=== PATIENT | male | born 1990 | race Caucasian/White ===

== ENCOUNTER 2021-02-28 01:42 | Emergency (ER) | payer OTHER, SELFPAY ==
[2021-02-28 02:13] VITALS: BP 116/74; PULSE 67; RESP 18; TEMP 36.2; O2SAT 99; BMI 21.9
[2021-02-28 04:01] VITALS: BP 112/76; PULSE 63; RESP 16; TEMP 36.7; O2SAT 100
[2021-02-28 04:39] LABS: Appearance Urine CLOUDY; Color Urine YELLOW; Glucose Urine UA NEG (NEG); Nitrite Urine POS (NEG); UACC Culture Trigger YES; Urine Blood 3+ (NEG); Urine Ketones NEG (NEG); Urine Protein 1+ MG/DL (NEG-TRACE)
[2021-02-28 04:40] LABS: Leukocyte Esterase Urine 3+ (NEG)
--- NOTE | 2021-02-28 04:40 | ED.MALEGU ---
HPI - Male Genitourinary General Chief complaint: Urogenital-Male Stated complaint: difficulty urinating Time Seen by Provider: 02/28/21 04:40 Source: patient Mode of arrival: ambulatory History of Present Illness HPI Narrative: 30-year-old male with history of HIV who presents with difficulty in urination and noted discharge from his penis for the past couple of days without associated fevers, chills, scrotal pain, or abdominal pain. He states his last sexual intercourse was approximately 2 weeks prior. Related Data Previous Rx's Medication Instructions Recorded doxycycline hyclate 100 mg PO BID 7 Days #14 cap 02/28/21 nitrofurantoin macrocrystal 100 mg PO BID 7 Days #14 cap 02/28/21 Allergies Allergy/AdvReac Type Severity Reaction Status Date / Time No Known Allergies Allergy Unverified 06/26/20 19:00 [No Known Allergies*] Review of Systems Review of Systems: Pertinent positives and negatives as stated in HPI 10 point review of systems is otherwise negative. PMFSH Past Medical History Source: nursing notes reviewed Social History Social History Advance Directives: No Advance Directives Information Provided: No Physical Exam Vital Signs: Vital Signs: Last Vital Signs Temp 98.0 F 02/28/21 04:01 Pulse 63 02/28/21 04:01 Resp 16 02/28/21 04:01 BP 112/76 02/28/21 04:01 Pulse Ox 100 02/28/21 04:01 Body Mass Index 21.9 VITAL SIGNS: Reviewed. GENERAL: Well developed, well nourished, in no acute distress. HEAD: Normocephalic/atraumatic EYES: PERRLA, EOMI NOSE: Nares patent bilateral OROPHARYNX: no oral lesions noted, posterior pharynx clear NECK: Supple, no adenopathy LUNGS: Normal breath sounds. No adventitious sounds or accessory muscle use. SpO2<100> CARDIOVASCULAR: Regular rate and rhythm without noted murmurs ABDOMEN: Soft, non-tender, non-distended with bowel sounds. . Course Course Course Narrative: This is a 30-year-old male with history and clinical presentation most consistent with STI and patient will be empirically treated here in the emergency room and encouraged the patient to follow up with the results with his physician. In addition on review of remaining investigations he is noted to have a UTI and given his medication regimen will send him out with a course of Macrobid for UTI and remaining doxycycline for the presumptive STI. Patient was not discharged to home in stable condition. MDM - Male Genitourinary Lab Data Labs: Lab Results 02/28/21 Range/Units 04:12 Urine Color YELLOW Urine Appearance CLOUDY Urine pH 6.0 (5.0-8.0) Ur Specific [place] 1.020 (1.005-1.025) Urine Protein 1+ H (NEG-TRACE) MG/DL Urine Glucose (UA) NEG (NEG) MG/DL Urine Ketones NEG (NEG) MG/DL Urine Blood 3+ H (NEG) Urine Nitrite POS H (NEG) Ur Leukocyte Esterase 3+ H (NEG) Urine RBC 5-9 H (0) /HPF Urine WBC TNTC H (0-4) /HPF Urine WBC Clumps NOTED Ur Squamous Epith Cells NONE /LPF Urine Bacteria 1+ /LPF Urine Mucus 2+ /LPF Discharge Plan Discharge Clinical Impression: Urinary tract infection, STI (sexually transmitted infection) Patient Disposition: Home, Self-Care Instructions: Sexually Transmitted Diseases (ED), Urinary Tract Infection in Men (ED) Additional Instructions: 1. Please follow-up with your primary care provider for re-evaluation in 2-3 days. 2. Please complete entire course of antibiotics. Return to the ER for any acute worsening of her symptoms. Prescriptions: New nitrofurantoin macrocrystal 100 mg capsule 100 mg PO BID 7 Days Qty: 14 RF: 0 doxycycline hyclate 100 mg capsule 100 mg PO BID 7 Days Qty: 14 RF: 0 Referrals: Physician,None [Primary Care Provider] - 2 days
[2021-02-28 04:47] LABS: Bacteria Urine 1+ /LPF; Mucus Urine 2+ /LPF; WBC Clumps Urine NOTED; WBC Urine TNTC /HPF (0-4)
[2021-02-28] MEDS: cefTRIAXone sodium 500 MG, Lidocaine HCl 1 % MPF 1 ML IM (05:06)
[2021-02-28] MEDS: Nitrofurantoin Monohyd/M-Cryst 100 MG CAPSULE PO (06:06)
[2021-02-28 10:20] LABS: CT PCR NOT DETECTED (Not Detect.); NG PCR NOT DETECTED (Not Detect.)
== END 2021-02-28 06:08 | disposition home or self-care (01) ==
PROVIDERS: Emergency Provider Student in an Organized Health Care Education/Training Program
DX: N39.0 Urinary tract infection, site not specified (principal); Z11.3 Encounter for screening for infections with a predominantly sexual mode of transmission
CPT/HCPCS: 81001; 81003; 87086; 87088; 87186; 87491; 87591; 96372; 99284; J0696

== ENCOUNTER 2023-05-04 12:26 | Outpatient (REF) | payer MEDICAID, SELFPAY ==
[2023-05-04 16:07] LABS: MANUAL DIFF FLAG NO
[2023-05-04 16:46] LABS: Basophils Absolute Auto 0.1 X10*3/uL (0.0-0.2); Basophils Percent Auto 0.6 % (0-2); Eosinophils Absolute Auto 0.1 X10*3/uL (0.0-0.4); Eosinophils Percent Auto 0.6 % (0-4); Hematocrit 41.9 % (42.0-52.0); Hemoglobin 13.3 g/dl (14.0-18.0); Imm Gran Abs Auto 0.02 X10*3/uL (0.00-0.03); Imm Gran Pct Auto 0.2 % (0.0-0.4); Lymphocytes Absolute Auto 2.3 X10*3/uL (1.2-4.9); Lymphocytes Percent Auto 27.1 % (20-40); Mean Corpuscular HGB Conc 31.7 g/dl (31.0-36.0); Mean Corpuscular Hemoglobin 28.8 pg (27.0-33.0); Mean Corpuscular Volume 90.7 fL (80.0-98.0); Mean Platelet Volume 9.6 fL (9.4-12.4); Monocytes Absolute Auto 0.4 X10*3/uL (0.1-1.2); Monocytes Percent Auto 4.9 % (2-11); Neutrophils Absolute Auto 5.7 x10*3/uL (2.0-8.3); Neutrophils Percent Auto 66.6 % (45-73); Platelet Count 285 X10*3/uL (160-400); Red Blood Count 4.62 X10*6/uL (4.60-5.80); Red Cell Distribution Width 13.4 % (11.0-16.0); White Blood Count 8.6 X10*3/uL (4.8-10.8)
[2023-05-04 17:03] LABS: Alanine Aminotransferase 15 U/L (0-40); Albumin Level 4.2 g/dL (3.5-5.0); Alkaline Phosphatase 80 U/L (39-117); Anion Gap 15 (12-20); Aspartate Amino Transferase 20 U/L (5-37); Bilirubin Total 0.5 mg/dL (0.0-1.0); Blood Urea Nitrogen 15 mg/dL (9-16); Calcium 9.3 mg/dL (8.4-10.2); Carbon Dioxide 24 mmol/L (22-29); Chloride 106 mmol/L (96-108); Estimated Glomerular Filt Rate > 60; Glucose Random 87 mg/dL (60-115); Potassium 4.1 mmol/L (3.3-5.1); Sodium 141 mmol/L (135-145); Total Protein 7.6 g/dL (6.5-8.0)
[2023-05-05 03:34] LABS: CT PCR NOT DETECTED (Not Detect.); NG PCR NOT DETECTED (Not Detect.)
[2023-05-05 07:47] LABS: Syphilis Screen Reactive (Nonreactive)
[2023-05-06 10:44] LABS: Absolute CD3 Count 1505 cells/uL (840-3060); Absolute CD4 Count 908 cells/uL (490-1740); Absolute CD8 Count 594 cells/uL (180-1170); Absolute Lymphocytes 2098 cells/uL (850-3900); CD4 CD8 Ratio 1.53 (0.86-5.00); Percent CD3 Cells 72 % (57-85); Percent CD4 Cells 43 % (30-61); Percent CD8 Cells 28 % (12-42)
[2023-05-06 16:33] LABS: HIV RNA PCR Qn Copies <20 DETECTED copies/mL (NOT DETECTED); HIV RNA PCR Qn Log Copies <1.30 DETECTED (NOT DETECTED)
[2023-05-09 12:08] LABS: C.Trachomatis RNA TMA, Rectal NOT DETECTED; N.Gonorrhoeae RNA TMA, Rectal NOT DETECTED
[2023-05-10 17:39] LABS: C. Trachomatis RNA TMA, Throat NOT DETECTED; N. gonorrhoeae RNA TMA, Throat NOT DETECTED
[2023-05-16 10:56] LABS: RPR Quantitative Reactive 1:4 (Nonreactive)
[2023-05-16 10:57] LABS: T.Pallidum Particle Agg Test Reactive (Nonreactive)
== END 2023-05-04 12:27 | disposition home or self-care (01) ==
LOC: HO.HHCL 12:26
PROVIDERS: Visit Provider Internal Medicine
DX: B20 Human immunodeficiency virus [HIV] disease (principal)
CPT/HCPCS: 0353U; 36415; 80053; 82550; 85025; 86359; 86360; 86592; 86780; 87491; 87536; 87591

== ENCOUNTER 2023-06-24 09:23 | Outpatient (REF) | payer MEDICAID, SELFPAY ==
[2023-06-24 11:31] LABS: MANUAL DIFF FLAG NO
[2023-06-24 11:36] LABS: Basophils Absolute Auto 0.1 X10*3/uL (0.0-0.2); Basophils Percent Auto 0.8 % (0-2); Eosinophils Absolute Auto 0.1 X10*3/uL (0.0-0.4); Eosinophils Percent Auto 1.2 % (0-4); Hematocrit 40.3 % (42.0-52.0); Hemoglobin 12.9 g/dl (14.0-18.0); Imm Gran Abs Auto 0.03 X10*3/uL (0.00-0.03); Imm Gran Pct Auto 0.3 % (0.0-0.4); Lymphocytes Percent Auto 26.5 % (20-40); Mean Corpuscular Hemoglobin 29.3 pg (27.0-33.0); Mean Corpuscular Volume 91.6 fL (80.0-98.0); Mean Platelet Volume 9.7 fL (9.4-12.4); Monocytes Absolute Auto 0.9 X10*3/uL (0.1-1.2); Monocytes Percent Auto 7.6 % (2-11); Neutrophils Absolute Auto 7.2 x10*3/uL (2.0-8.3); Neutrophils Percent Auto 63.6 % (45-73); Platelet Count 241 X10*3/uL (160-400); White Blood Count 11.3 X10*3/uL (4.8-10.8)
[2023-06-24 12:18] LABS: Alanine Aminotransferase 44 U/L (0-40); Alkaline Phosphatase 88 U/L (39-117); Anion Gap 8 (12-20); Aspartate Amino Transferase 30 U/L (5-37); Bilirubin Total 0.3 mg/dL (0.0-1.0); Blood Urea Nitrogen 20 mg/dL (9-16); Calcium 8.7 mg/dL (8.4-10.2); Carbon Dioxide 28 mmol/L (22-29); Chloride 106 mmol/L (96-108); Estimated Glomerular Filt Rate > 60; Glucose Random 83 mg/dL (60-115); Potassium 3.8 mmol/L (3.3-5.1); Sodium 138 mmol/L (135-145); Total Protein 6.7 g/dL (6.5-8.0)
[2023-06-24 13:23] LABS: Syphilis Screen Reactive (Nonreactive)
[2023-06-24 16:32] LABS: CT PCR NOT DETECTED (Not Detect.); NG PCR NOT DETECTED (Not Detect.)
[2023-06-27 08:09] LABS: Absolute CD3 Count 2049 cells/uL (840-3060); Absolute CD4 Count 1164 cells/uL (490-1740); Absolute CD8 Count 895 cells/uL (180-1170); Absolute Lymphocytes 3030 cells/uL (850-3900); Percent CD3 Cells 68 % (57-85); Percent CD4 Cells 38 % (30-61); Percent CD8 Cells 30 % (12-42)
[2023-06-29 19:48] LABS: HIV RNA PCR Qn Copies 25 copies/mL (NOT DETECTED)
[2023-07-03 14:41] LABS: RPR Quantitative Reactive 1:4 (Nonreactive); T.Pallidum Particle Agg Test Reactive (Nonreactive)
== END 2023-06-24 09:24 | disposition home or self-care (01) ==
LOC: HO.HHCL 09:23
PROVIDERS: Visit Provider Internal Medicine
DX: B20 Human immunodeficiency virus [HIV] disease (principal)
CPT/HCPCS: 0353U; 36415; 80053; 82550; 85025; 86359; 86360; 86592; 86780; 87536

== ENCOUNTER 2023-12-27 08:22 | Outpatient (REF) | payer MEDICAID, SELFPAY ==
[2023-12-27 11:23] LABS: MANUAL DIFF FLAG NO
[2023-12-27 11:36] LABS: Hematocrit 44.9 % (42.0-52.0); Mean Corpuscular HGB Conc 33.4 g/dl (31.0-36.0); Mean Corpuscular Hemoglobin 29.4 pg (27.0-33.0); Mean Platelet Volume 9.5 fL (9.4-12.4); Neutrophils Percent Auto 34.9 % (45-73); Platelet Count 326 X10*3/uL (160-400); Red Cell Distribution Width 13.1 % (11.0-16.0); White Blood Count 8.8 X10*3/uL (4.8-10.8)
[2023-12-27 11:37] LABS: Basophils Absolute Auto 0.1 X10*3/uL (0.0-0.2); Eosinophils Absolute Auto 0.2 X10*3/uL (0.0-0.4); Eosinophils Percent Auto 2.7 % (0-4); Imm Gran Abs Auto 0.01 X10*3/uL (0.00-0.03); Imm Gran Pct Auto 0.1 % (0.0-0.4); Lymphocytes Absolute Auto 4.7 X10*3/uL (1.2-4.9); Lymphocytes Percent Auto 53.4 % (20-40); Monocytes Absolute Auto 0.7 X10*3/uL (0.1-1.2); Monocytes Percent Auto 7.9 % (2-11); Neutrophils Absolute Auto 3.1 x10*3/uL (2.0-8.3)
[2023-12-27 12:22] LABS: Alanine Aminotransferase 17 U/L (0-40); Albumin Level 4.4 g/dL (3.5-5.0); Alkaline Phosphatase 91 U/L (39-117); Anion Gap 13 (12-20); Aspartate Amino Transferase 20 U/L (5-37); Bilirubin Total 1.3 mg/dL (0.0-1.0); Blood Urea Nitrogen 20 mg/dL (9-16); Calcium 9.6 mg/dL (8.4-10.2); Carbon Dioxide 26 mmol/L (22-29); Chloride 104 mmol/L (96-108); Cholesterol 230 mg/dL (<200); Estimated Glomerular Filt Rate > 60; Glucose Random 104 mg/dL (60-115); HDL Cholesterol 96 mg/dL (>40); LDL Cholesterol Calculated 123 mg/dL (<100); Potassium 4.3 mmol/L (3.3-5.1); Sodium 139 mmol/L (135-145); Total Protein 7.8 g/dL (6.5-8.0); Triglycerides 58 mg/dL (<150)
[2023-12-27 13:24] LABS: Reflex LDLD? No
[2023-12-28 12:54] LABS: Absolute CD3 Count 2983 cells/uL (840-3060); Absolute CD4 Count 1620 cells/uL (490-1740); Absolute CD8 Count 1377 cells/uL (180-1170); Absolute Lymphocytes 4658 cells/uL (850-3900); CD4 CD8 Ratio 1.18 (0.86-5.00); Percent CD3 Cells 64 % (57-85); Percent CD4 Cells 35 % (30-61); Percent CD8 Cells 30 % (12-42)
[2023-12-29 12:34] LABS: RPR Rapid Plasma Reagin REACTIVE (NON-REACTIVE)
[2023-12-29 14:53] LABS: HCV Log PCR <1.18 NOT DETECTED Log IU/mL (NOT DETECTED); HepC Viral Load <15 NOT DETECTED IU/mL (NOT DETECTED)
[2023-12-30 07:19] LABS: TS Negative Control Passed; TS Panel A 0; TS Panel B 0; TS Positive Control Passed; TSpotTB Negative (Negative)
[2024-01-04 07:13] LABS: HIV RNA PCR Qn Copies 29 copies/mL (NOT DETECTED); HIV RNA PCR Qn Log Copies 1.46 (NOT DETECTED)
== END 2023-12-27 08:23 | disposition home or self-care (01) ==
LOC: HO.HHCL 08:22
PROVIDERS: Visit Provider Internal Medicine
DX: B20 Human immunodeficiency virus [HIV] disease (principal)
CPT/HCPCS: 36415; 80053; 80061; 82550; 85025; 86359; 86360; 86481; 86592; 86593; 87522; 87536

== ENCOUNTER 2024-03-14 09:35 | Outpatient (REF) | payer MEDICAID, SELFPAY ==
[2024-03-14 11:48] LABS: MANUAL DIFF FLAG NO
[2024-03-14 11:55] LABS: Basophils Percent Auto 0.6 % (0-2); Eosinophils Absolute Auto 0.1 X10*3/uL (0.0-0.4); Hematocrit 38.7 % (42.0-52.0); Hemoglobin 13.1 g/dl (14.0-18.0); Imm Gran Abs Auto 0.03 X10*3/uL (0.00-0.03); Imm Gran Pct Auto 0.4 % (0.0-0.4); Lymphocytes Absolute Auto 2.3 X10*3/uL (1.2-4.9); Lymphocytes Percent Auto 33.5 % (20-40); Mean Corpuscular HGB Conc 33.9 g/dl (31.0-36.0); Mean Corpuscular Hemoglobin 29.7 pg (27.0-33.0); Mean Corpuscular Volume 87.8 fL (80.0-98.0); Mean Platelet Volume 9.6 fL (9.4-12.4); Monocytes Absolute Auto 0.4 X10*3/uL (0.1-1.2); Monocytes Percent Auto 6.1 % (2-11); Neutrophils Percent Auto 58.4 % (45-73); Platelet Count 231 X10*3/uL (160-400); Red Blood Count 4.41 X10*6/uL (4.60-5.80); Red Cell Distribution Width 12.8 % (11.0-16.0); White Blood Count 6.9 X10*3/uL (4.8-10.8)
[2024-03-14 12:08] LABS: Alanine Aminotransferase 18 U/L (0-40); Albumin Level 4.3 g/dL (3.5-5.0); Alkaline Phosphatase 78 U/L (39-117); Anion Gap 13 (12-20); Aspartate Amino Transferase 21 U/L (5-37); Bilirubin Total 0.8 mg/dL (0.0-1.0); Blood Urea Nitrogen 12 mg/dL (9-16); Carbon Dioxide 25 mmol/L (22-29); Chloride 106 mmol/L (96-108); Estimated Glomerular Filt Rate > 60; Glucose Random 95 mg/dL (60-115); Potassium 3.7 mmol/L (3.3-5.1); Sodium 140 mmol/L (135-145); Total Protein 7.1 g/dL (6.5-8.0)
[2024-03-15 11:48] LABS: Absolute CD3 Count 1576 cells/uL (840-3060); Absolute CD4 Count 865 cells/uL (490-1740); Absolute CD8 Count 718 cells/uL (180-1170); Absolute Lymphocytes 2382 cells/uL (850-3900); Percent CD3 Cells 66 % (57-85); Percent CD4 Cells 36 % (30-61); Percent CD8 Cells 30 % (12-42)
[2024-03-16 14:08] LABS: HIV RNA PCR Qn Copies NOT DETECTED copies/mL (NOT DETECTED); HIV RNA PCR Qn Log Copies NOT DETECTED (NOT DETECTED)
== END 2024-03-14 09:36 | disposition home or self-care (01) ==
LOC: HO.HHCL 09:35
PROVIDERS: Visit Provider Internal Medicine
DX: B20 Human immunodeficiency virus [HIV] disease (principal); Z11.3 Encounter for screening for infections with a predominantly sexual mode of transmission
CPT/HCPCS: 36415; 80053; 82550; 85025; 86359; 86360; 87536

== ENCOUNTER 2024-03-14 19:14 | Outpatient (REF) | payer MEDICAID, SELFPAY ==
[2024-03-15 02:55] LABS: CT PCR NOT DETECTED (Not Detect.); NG PCR NOT DETECTED (Not Detect.)
[2024-03-19 04:24] LABS: C.Trachomatis RNA TMA, Rectal NOT DETECTED; N.Gonorrhoeae RNA TMA, Rectal NOT DETECTED
[2024-03-19 04:33] LABS: C. Trachomatis RNA TMA, Throat NOT DETECTED; N. gonorrhoeae RNA TMA, Throat NOT DETECTED
== END 2024-03-14 19:15 | disposition home or self-care (01) ==
LOC: HO.HHCLNP 19:14
PROVIDERS: Visit Provider Family Medicine
DX: Z11.3 Encounter for screening for infections with a predominantly sexual mode of transmission (principal)
CPT/HCPCS: 0353U; 87491; 87591

== ENCOUNTER 2024-04-04 18:40 | Outpatient (REF) | payer MEDICAID, SELFPAY ==
[2024-04-05 06:07] LABS: CT PCR NOT DETECTED (Not Detect.); NG PCR NOT DETECTED (Not Detect.)
== END 2024-04-04 18:41 | disposition home or self-care (01) ==
LOC: HO.HHCLNP 18:40
PROVIDERS: Visit Provider Emergency Medicine
DX: N34.2 Other urethritis (principal)
CPT/HCPCS: 87086; 87088; 87186; 87491; 87591

== ENCOUNTER 2024-05-31 08:56 | Outpatient (REF) | payer MEDICAID, SELFPAY ==
[2024-05-31 13:00] LABS: HBS Num1 > 1000.00 mIU/mL (0-7.99); HBc Num1 0.28 S/CO (0.00-0.79); HBsAGNum1 0.31 S/CO (0.00-0.99); Hepatitis B Core Antibody Nonreactive (Nonreactive); Hepatitis B Surface Antigen Negative (Negative); ~HepC Num1 0.11 S/CO (0.00-0.79); ~Hepatitis B Surface Antibody REACTIVE (Nonreactive); ~Hepatitis C Antibody Nonreactive (Nonreactive)
[2024-06-01 12:28] LABS: RPR Rapid Plasma Reagin REACTIVE (NON-REACTIVE)
[2024-06-01 21:29] LABS: Trichomonas vag. RNA Ur Male NOT DETECTED (NOT DETECTED)
== END 2024-05-31 08:57 | disposition home or self-care (01) ==
LOC: HO.HHCL 08:56
PROVIDERS: Visit Provider Emergency Medicine
DX: N34.2 Other urethritis (principal)
CPT/HCPCS: 36415; 86592; 86593; 86704; 86706; 86803; 87340; 87661

== ENCOUNTER 2024-08-28 13:02 | Outpatient (REF) | payer MEDICAID, SELFPAY ==
[2024-08-28 17:46] LABS: Vitamin B12 433 pg/mL (200-900)
== END 2024-08-28 13:03 | disposition home or self-care (01) ==
LOC: HO.HHCL 13:02
PROVIDERS: Visit Provider Internal Medicine
DX: E46 Unspecified protein-calorie malnutrition (principal)
CPT/HCPCS: 36415; 82607; 82746

== ENCOUNTER 2024-09-11 14:13 | Outpatient (REF) | payer MEDICAID, SELFPAY ==
[2024-09-11 16:27] LABS: MANUAL DIFF FLAG NO
[2024-09-11 16:32] LABS: Basophils Absolute Auto 0.1 X10*3/uL (0.0-0.2); Basophils Percent Auto 0.9 % (0-2); Eosinophils Absolute Auto 0.2 X10*3/uL (0.0-0.4); Eosinophils Percent Auto 2.9 % (0-4); Hematocrit 38.2 % (42.0-52.0); Hemoglobin 12.8 g/dl (14.0-18.0); Imm Gran Abs Auto 0.01 X10*3/uL (0.00-0.03); Imm Gran Pct Auto 0.2 % (0.0-0.4); Lymphocytes Absolute Auto 2.8 X10*3/uL (1.2-4.9); Lymphocytes Percent Auto 50.3 % (20-40); Mean Corpuscular HGB Conc 33.5 g/dl (31.0-36.0); Mean Corpuscular Hemoglobin 29.6 pg (27.0-33.0); Mean Corpuscular Volume 88.2 fL (80.0-98.0); Mean Platelet Volume 9.3 fL (9.4-12.4); Monocytes Absolute Auto 0.4 X10*3/uL (0.1-1.2); Monocytes Percent Auto 6.4 % (2-11); Neutrophils Absolute Auto 2.2 x10*3/uL (2.0-8.3); Neutrophils Percent Auto 39.3 % (45-73); Platelet Count 226 X10*3/uL (160-400); Red Blood Count 4.33 X10*6/uL (4.60-5.80); Red Cell Distribution Width 12.6 % (11.0-16.0); White Blood Count 5.5 X10*3/uL (4.8-10.8)
[2024-09-11 21:23] LABS: Alanine Aminotransferase 17 U/L (0-40); Albumin Level 4.2 g/dL (3.5-5.0); Alkaline Phosphatase 91 U/L (39-117); Anion Gap 13 (12-20); Aspartate Amino Transferase 28 U/L (5-37); Bilirubin Total 0.4 mg/dL (0.0-1.0); Blood Urea Nitrogen 18 mg/dL (9-16); Calcium 8.5 mg/dL (8.4-10.2); Carbon Dioxide 23 mmol/L (22-29); Chloride 109 mmol/L (96-108); Estimated Glomerular Filt Rate > 60; Glucose Random 96 mg/dL (60-115); Potassium 3.6 mmol/L (3.3-5.1); Sodium 141 mmol/L (135-145); Total Protein 7.1 g/dL (6.5-8.0)
[2024-09-13 17:13] LABS: RPR Rapid Plasma Reagin REACTIVE (NON-REACTIVE)
[2024-09-13 22:59] LABS: HIV RNA PCR Qn Copies 49 copies/mL (NOT DETECTED); HIV RNA PCR Qn Log Copies 1.69 (NOT DETECTED)
[2024-09-14 22:33] LABS: Absolute CD3 Count 1792 cells/uL (840-3060); Absolute CD4 Count 1071 cells/uL (490-1740); Absolute CD8 Count 740 cells/uL (180-1170); Absolute Lymphocytes 2600 cells/uL (850-3900); CD4 CD8 Ratio 1.45 (0.86-5.00); Percent CD3 Cells 69 % (57-85); Percent CD4 Cells 41 % (30-61); Percent CD8 Cells 28 % (12-42)
== END 2024-09-11 14:14 | disposition home or self-care (01) ==
LOC: HO.HHCL 14:13
PROVIDERS: Visit Provider Internal Medicine
DX: Z21 Asymptomatic human immunodeficiency virus [HIV] infection status (principal)
CPT/HCPCS: 36415; 80053; 82550; 85025; 86359; 86360; 86592; 86593; 87536

== ENCOUNTER 2025-05-16 11:27 | Outpatient (REF) | payer MEDICAID, SELFPAY ==
--- OUTSIDE RECORDS SUMMARY | 2025-05-16 12:09 | XMS_ITS | Clinical Summary ---
Author Organization [facility] Address [address] [place] [address] Phone Care Team Providers Care Ruby Developer Name Role Phone Physician, No Pcp Primary Care Provider Unavaila ble Allergies No known active allergies Medications methocarbamoL (ROBAXIN) 750 mg tablet Take 1 tablet (750 mg total) by mouth 4 (four) times a day for 10 days. 40 each 03/13/2025 Active clotrimazole (LOTRIMIN) 1 % cream Apply to affected area 2 times daily 45 g 04/05/2025 04/05/20 26 Active Active Problems Problem Noted Date Diagnosed Date Primary syphilis 08/21/2024 Encounters Date Type Department Care Team Description 04/05/2025 7:28 AM EDT - 04/05/2025 8:33 AM EDT [facility] Emergency [address] [place] [phone] Tinea pedis, unspecified laterality (Primary Dx) Discharge Disposition: Home or Self Care 03/27/2025 11:35 AM EDT - 03/27/2025 12:58 PM EDT Emergency [facility] Emergency [address] [place] [address] [phone] Jake Thakkar MD Insect bite, unspecified site, initial encounter (Primary Dx) Discharge Disposition: Home or Self Care 03/13/2025 12:28 AM EDT - 03/13/2025 12:45 AM EDT [facility] Emergency [address] [place] [address] [phone] Thoracic myofascial strain, initial encounter (Primary Dx) Discharge Disposition: Home or Self Care 03/07/2025 12:03 AM EDT - 03/07/2025 2:06 AM EDT Emergency [facility] Emergency [address] [place] [address] Ureteritis (Primary Dx) Discharge Disposition: Home or Self Care from Last 3 Months Surgical History Surgery Date Site/Laterality Comments APPENDECTOMY N/A PROCEDURE: MS APPENDECTOMY Medical History Medical History Date Comments Anxiety disorder DX:Anxiety diso rder Depression DX:Depression PTSD (post-traumatic stress disorder) DX:PTSD (post-traumatic stress disorder) Human immunodeficiency virus (HIV) disease ([facility] V24, [facility] V28) DX:Human immunodefi ciency virus (HIV) disease (HCC) HIV (human immunodeficiency virus infection) ([facility] V24, [facility] V28) Social History Tobacco Use Types Packs/Day Years Used Date Smoking Tobacco: Never Smokeless Tobacco: Never Alcohol Use Standard Drinks/Week Comments Never 0 (1 standard drink = 0.6 oz pur e alcohol) Housing Instability Answer Date Recorde d Are you worried that in the next 2 months you may not have stable housing? Yes 11/01/2024 Food Access & Nutrition Answer Date Rec orded Do you have access to a vari ety of food including fruits and vegetables? No 11/01/2024 Access to Healthcare Answer Date Record ed Within the last 3 months, ho w many times did you visit the emergency department for your medical care? 2 11/01/2024 Health Literacy Answer Date Recorded How often do you need to hav e someone help you when you read instructions, pamphlets, or other written material from your doctor or pharmacy? Never 11/01/2024 Caregiver: How often do you need to have someone help you when you read instructions, pamphlets, or other written material from your doctor or pharmacy? Not on file 11/01/2024 Financial Risk Answer Date Recorded How hard is it for you to pa y for the very basics like food, housing, medical care, and air conditioning / heating? Not very hard 11/01/2024 Transportation Answer Date Recorded Has the lack of transportati on kept you from meetings, work, or from getting things needed for daily living? No Has the lack of transportati on kept you from medical appointments or from getting medications? No 11/01/2024 Social Isolation Answer Date Recorded How often do you feel lonely or isolated from th ose around you? Never 11/01/2024 Food Risk Answer Date Recorded Within the past 12 months we worried whether our food would run out before we got money to buy more. Never true 11/01/2024 Within the past 12 months th e food we bought just didn't last and we didn't have money to get more. Never true 11/01/2024 Dependent Care Answer Date Recorded Do you need help finding or paying for care for your loved ones. For example, early childhood worker or elderly care for an older adult? No 11/01/2024 Education Answer Date Recorded Do you think completing more education or training, like finishing a GED, going to college, or learning a trade, would be helpful for you? N/A 11/01/2024 Employment and Income Answer Date Recor ded During the last four weeks, have you been actively looking for work? No 11/01/2024 Living Situation Answer Date Recorded What is your living situation? 0 11/01/2024 Sex and Gender Information Value Date Recorded Sex Assigned at Male 09/15/2024 6:50 PM EST Legal Sex Male 10:04 AM EST Gender Identity Male 09/15/2024 6:50 PM EST Sexual Orientation Lesbian or Mayer 09/15/2024 6: 50 PM EST Obstetrics History Last Filed Vital Signs Vital Sign Reading Time Taken Comments Blood Pressure 94/61 04/05/2025 6:26 AM EDT Pulse 60 04/05/2025 6:26 AM EDT Temperature 36.4 C (97.5 F) 04/05/2025 6:26 AM EDT Respiratory Rate 18 04/05/2025 6:26 AM EDT Oxygen Saturation 100% 04/05/2025 6:26 AM EDT Inhaled Oxygen Concentration - - Weight 56.7 kg (125 lb) 04/04/2025 7:00 PM EDT Height 162.6 cm (5' 4 ) 04/04/2025 7:00 PM EDT Body Mass Index 21.46 04/04/2025 7:00 PM EDT Plan of Treatment Health Maintenance Due Date Last Done Comments Hepatitis A Vaccines (1 of 2 - Risk 2-dose series) 2010 Hepatitis B Vaccines (1 of 3 - 19+ 3-dose series) 2010 HIV Screening 09/07/2022 Hepatitis C Screening 09/07/2022 COVID-19 Vaccine (4 - 2023-2 5 season) 2024 10/27/2021, 07/03/2021, 06/05/2021 Depression Screening 10/10/2024 Influenza Vaccine (#1) 2025 Social Influencers of Health Screening 11/01/2025 11/01/2024 DTaP,Tdap,and Td Vaccines (3 - Td or Tdap) 05/02/2033 05/02/2023, 04/18/2021 Meningococcal ACWY Vaccine Aged Out 09/27/2024 N o longer eligible based on patient's age to complete this topic HIB Vaccines Aged Out No longer eligi ble based on patient's age to complete this topic HPV Vaccines Aged Out No longer eligi ble based on patient's age to complete this topic IPV Vaccines Aged Out No longer eligi ble based on patient's age to complete this topic MMR Vaccines Aged Out No longer eligi ble based on patient's age to complete this topic Meningococcal B Vaccine Aged Out No l onger eligible based on patient's age to complete this topic Pneumococcal Vaccine: Pediatrics (0 to 5 Years) and At-Risk Patients (6 to 49 Years) Aged Out No longer eligible b ased on patient's age to complete this topic RSV Immunization Patients Under 20 months Aged Out No longer eligible b ased on patient's age to complete this topic Varicella Vaccines Aged Out No longer eligible based on patient's age to complete this topic Procedures Procedure Name Priority Date/Time Associated Diagnosis Comments CHLAMYDIA TRACHOMATIS AND NEISSERIA GONORRHOEAE PCR STAT 03/07/2025 1:14 AM EDT SULLIVAN URINE CULTURE TUBE STAT 03/06/2025 11:51 PM EDT URINALYSIS WITH REFLEX MICROSCOPIC AND CULTURE STAT 03/06/2025 11:51 PM EDT URINALYSIS WITH REFLEX MICROSCOPIC AND CULTURE STAT 03/06/2025 11:51 PM EDT from Last 3 Months Results * Chlamydia trachomatis and Neisseria gonorrhoeae molecular study (03/07/2025 1:14 AM EDT) [facility] Neisseria gonorrhoeae PCR Negative Negative LAB MOLECULAR DIAGNOSTICS METHOD 03/07/2025 11:54 AM EDT [facility] Chlamydia trachomatis PCR Negative Negative LAB MOLECULAR DIAGNOSTICS METHOD 03/07/2025 11:54 AM [facility] Urine Urine specimen from urethra / Unknown Non-blood Collection / Unknown 03/07/2025 1:14 AM EDT 03/07/2025 2:06 AM EDT Adelso MARIN LAB MICROBIOLOGY - GENERAL OR DERABLES Final Result [facility] [address] [place] [address], [place] [phone] * (ABNORMAL) Urinalysis with reflex microscopic and culture (03/06/2025 11:51 PM EDT) [facility] Specific [place] Urine 1.026 1.003 - 1.030 LAB URINALYSIS - AUTOMATED METHOD 03/07/2025 12:40 AM [facility] pH, Urine 5.5 5.0 - 8.0 pH LAB URINALYSIS - AUTOMATED METHOD 03/07/2025 12:40 AM [facility] Leukocytes, Urine Negative Negative LAB URINALYSIS - AUTOMATED METHOD 03/07/2025 12:40 AM [facility] Nitrite, Urine Negative Negative LAB URINALYSIS - AUTOMATED METHOD 03/07/2025 12:40 AM [facility] Protein, Urine Trace <=Trace mg/dL LAB URINALYSIS - AUTOMATED METHOD 03/07/2025 12:40 AM [facility] Glucose, Urine Negative Negative mg/dL LAB URINALYSIS - AUTOMATED METHOD 03/07/2025 12:40 AM [facility] Ketones, Urine Trace(A) Negative mg/dL LAB URINALYSIS - AUTOMATED METHOD 03/07/2025 12:40 AM EDT [facility] Urobilinogen, Urine 0.2 0.2 - 1.0 mg/dL LAB URINALYSIS - AUTOMATED METHOD 03/07/2025 12:40 AM EDT [facility] Bilirubin, Urine Negative Negative LAB URINALYSIS - AUTOMATED METHOD 03/07/2025 12:40 AM EDT [facility] Blood, Urine Negative Negative LAB URINALYSIS - AUTOMATED METHOD 03/07/2025 12:40 AM EDT [facility] Urine Urine specimen obtained by clean catch procedure / Unknown Non-blood Collection / Unknown 03/06/2025 11:51 PM EDT 03/07/2025 12:32 AM EDT Myles Berman MD LAB URINE ORDERABLES Final Resu lt Performing Organization Address [facility]/ZIP Co de Phone Number [facility] [address] [place] [address], [place] [phone] * Sullivan urine culture tube (03/06/2025 11:51 PM EDT) Extra Tube Hold for add-ons. 03/07/2025 2:01 AM EDT [facility] Comment:Auto resulted. Urine Urine specimen obtained by clean catch procedure / Unknown Non-blood Collection / Unknown 03/06/2025 11:51 PM EDT 03/07/2025 12:32 AM EDT Myles Berman MD LAB URINE ORDERABLES Final Resu lt Performing Organization Address [facility]/ZIP Co de Phone Number [facility] [address] [place] [address], [place] [phone] from Last 3 Months Insurance Sanujana DOHERTY, JOSE J [id number] [facility] [place] [id number] Care Teams Ruby Developer Relationship Specialty Start Date End Date Physician, No Pcp PCP - General 08/21/24
[2025-05-16 13:02] LABS: MANUAL DIFF FLAG NO
[2025-05-16 13:04] LABS: Hematocrit 36.8 % (42.0-52.0); Hemoglobin 12.7 g/dl (14.0-18.0); Imm Gran Abs Auto 0.01 X10*3/uL (0.00-0.03); Imm Gran Pct Auto 0.2 % (0.0-0.4); Lymphocytes Absolute Auto 1.9 X10*3/uL (1.2-4.9); Mean Corpuscular HGB Conc 34.5 g/dl (31.0-36.0); Mean Corpuscular Hemoglobin 29.8 pg (27.0-33.0); Mean Corpuscular Volume 86.4 fL (80.0-98.0); NRBC Abs Auto 0.000 X10*3/uL (0.0-0.012); NRBC Pct Auto 0.0 /100WBC (0.0-0.2); Platelet Count 220 X10*3/uL (160-400); Red Blood Count 4.26 X10*6/uL (4.60-5.80); White Blood Count 5.3 X10*3/uL (4.8-10.8)
[2025-05-16 13:17] LABS: Alanine Aminotransferase 22 U/L (0-40); Albumin Level 4.4 g/dL (3.5-5.0); Alkaline Phosphatase 75 U/L (39-117); Anion Gap 12 (12-20); Aspartate Amino Transferase 30 U/L (5-37); Blood Urea Nitrogen 15 mg/dL (9-16); Calcium 8.7 mg/dL (8.4-10.2); Carbon Dioxide 25 mmol/L (22-29); Chloride 108 mmol/L (96-108); Cholesterol 176 mg/dL (<200); Estimated Glomerular Filt Rate > 60; HDL Cholesterol 71 mg/dL (>40); Potassium 4.0 mmol/L (3.3-5.1); Sodium 141 mmol/L (135-145); Total Protein 6.9 g/dL (6.5-8.0); Triglycerides 57 mg/dL (<150)
[2025-05-16 13:45] LABS: Reflex LDLD? No
[2025-05-17 19:13] LABS: HIV RNA PCR Qn Copies NOT DETECTED copies/mL (NOT DETECTED); HIV RNA PCR Qn Log Copies NOT DETECTED (NOT DETECTED)
[2025-05-19 16:28] LABS: TS Negative Control Passed; TS Panel A 0; TS Panel B 0; TS Positive Control Passed; TSpotTB Negative (Negative)
[2025-05-20 14:48] LABS: Rapid Plasma Reagin Ab Titer 1:8
[2025-05-21 20:43] LABS: Absolute CD3 Count 1236 cells/uL (840-3060); Absolute CD8 Count 540 cells/uL (180-1170); Percent CD3 Cells 70 % (57-85); Percent CD8 Cells 31 % (12-42)
== END 2025-05-16 11:28 | disposition home or self-care (01) ==
LOC: HO.HHCL 11:27
PROVIDERS: Visit Provider Internal Medicine
DX: B20 Human immunodeficiency virus [HIV] disease (principal)
CPT/HCPCS: 36415; 80053; 80061; 82550; 85025; 86359; 86360; 86481; 86592; 86593; 87536

== ENCOUNTER 2025-08-09 18:09 | Outpatient (REF) | payer MEDICAID, SELFPAY ==
--- OUTSIDE RECORDS SUMMARY | 2025-08-09 18:12 | XMS_ITS | Clinical Summary ---
Author Organization [facility] Address [address] [place] [address] Phone Care Team Providers Care Network Support Specialist Name Role Phone Physician, No Pcp Primary Care Provider Unavaila ble Allergies No known active allergies Medications methocarbamoL (ROBAXIN) 750 mg tablet Take 1 tablet (750 mg total) by mouth 4 (four) times a day for 10 days. 40 each 5 Active clotrimazole (LOTRIMIN) 1 % cream Apply to affected area 2 times daily 45 g 5 04/05/20 26 Active doxycycline (VIBRAMYCIN) 100 mg capsule Take 1 capsule (100 mg total) by mouth 2 (two) times a day for 10 days. Take with at least 8 ounces (large glass) of water, do not lie down for 30 minutes after. Administer 2 hours before or after multivitamins, antacids, or other products containing polyvalent cations (i.e., calcium, iron, magnesium, selenium, zinc). 20 capsule 5 08/10/20 25 Active Active Problems Problem Noted Date Diagnosed Date Primary syphilis 08/21/2024 Encounters Date Type Department Care Team Description 07/31/2025 9:37 PM EDT - 07/31/2025 10:[address] [facility] Emergency [address] [place] [address] Dysuria (Primary Dx); Concern about STD in male without diagnosis Discharge Disposition: Home or Self Care from Last 3 Months Surgical History Surgery Date Site/Laterality Comments APPENDECTOMY N/A PROCEDURE: [place] APPENDECTOMY Medical History Medical History Date Comments Anxiety disorder DX:Anxiety diso rder Depression DX:Depression PTSD (post-traumatic stress disorder) DX:PTSD (post-traumatic stress disorder) Human immunodeficiency virus (HIV) disease ([facility] V24, [facility] V28) DX:Human immunodefi ciency virus (HIV) disease (HCC) HIV (human immunodeficiency virus infection) ([facility] V24, [facility] V28) Social History Tobacco Use [...] care for your loved ones. For example, children's institution attendant or elderly care for an older adult? [...] Date Recorded What is your living situation? Unrecognized valu e 11/01/2024 Sex and Gender Information Value Date Recorded Sex Assigned at Male 09/15/2024 6:50 PM EST Legal Sex Male 10:04 AM EST Gender Identity Male 09/15/2024 6:50 PM EST Sexual Orientation Lesbian or Mayer 09/15/2024 6: 50 PM EST Obstetrics History Last Filed Vital Signs Vital Sign Reading Time Taken Comments Blood Pressure 104/66 07/31/2025 9:36 PM EDT Pulse 92 07/31/2025 9:36 PM EDT Temperature 37.2 C (99 F) 07/31/2025 9:36 PM EDT Respiratory Rate 18 07/31/2025 9:36 PM EDT Oxygen Saturation 95% 07/31/2025 9:36 PM EDT Inhaled Oxygen Concentration - - Weight [...] of 3 - 19+ 3-dose series) 2010 HPV Vaccines (1 - 3-dose SCD M series) 2018 HIV Screening 09/07/2022 Hepatitis C Screening 09/07/2022 Depression Screening 10/10/2024 COVID-19 Vaccine (4 - 2024-2 6 season) 2025 10/27/2021, 07/03/2021, 06/05/2021 Influenza Vaccine (#1) 2025 Social Influencers of Health Screening 11/01/2025 11/01/2024 DTaP,Tdap,and Td Vaccines (3 - Td or Tdap) 05/02/2033 05/02/2023, 04/18/2021 RSV Immunization Adult Patients (1 - 1-dose 75+ series) 2066 Meningococcal ACWY Vaccine Aged Out 09/27/2024 N [...] Procedure Name Priority Date/Time Associated Diagnosis Comments SULLIVAN URINE CULTURE TUBE STAT 07/31/2025 9:50 PM EDT URINALYSIS WITH REFLEX MICROSCOPIC AND CULTURE STAT 07/31/2025 9:50 PM EDT URINALYSIS WITH REFLEX MICROSCOPIC AND CULTURE STAT 07/31/2025 9:50 PM EDT CHLAMYDIA TRACHOMATIS AND NEISSERIA GONORRHOEAE PCR STAT 07/31/2025 9:50 PM EDT from Last 3 Months Results * (ABNORMAL) Urinalysis with reflex microscopic and culture (07/31/2025 9:50 PM EDT) Color, Urine Yellow Yellow, Colorless LAB URINALYSIS - AUTOMATED METHOD 07/31/2025 10:02 PM EDT [facility] Clarity, Urine Clear Clear LAB URINALYSIS - AUTOMATED METHOD 07/31/2025 10:02 PM EDT [facility] Specific [place] Urine 1.029 1.005 - 1.030 LAB URINALYSIS - AUTOMATED METHOD 07/31/2025 10:02 PM [facility] pH, Urine 5.0(A) 5.0 - 8.0 pH LAB URINALYSIS - AUTOMATED METHOD 07/31/2025 10:02 PM [facility] Leukocytes, Urine Negative Negative WBCs/mcL LAB URINALYSIS - AUTOMATED METHOD 07/31/2025 10:02 PM [facility] Nitrite, Urine Negative Negative LAB URINALYSIS - AUTOMATED METHOD 07/31/2025 10:02 PM [facility] Protein, Urine Negative Negative mg/dL LAB URINALYSIS - AUTOMATED METHOD 07/31/2025 10:02 PM [facility] Glucose, Urine Negative Negative mg/dL LAB URINALYSIS - AUTOMATED METHOD 07/31/2025 10:02 PM [facility] Ketones, Urine Negative Negative mg/dL LAB URINALYSIS - AUTOMATED METHOD 07/31/2025 10:02 PM [facility] Blood, Urine Small(A) Negative mg/dL LAB URINALYSIS - AUTOMATED METHOD 07/31/2025 10:02 PM [facility] RBC, Urine 1 0 - 3 /HPF LAB URINALYSIS - AUTOMATED METHOD 07/31/2025 10:02 PM [facility] WBC, Urine 1 0 - 5 /HPF LAB URINALYSIS - AUTOMATED METHOD 07/31/2025 10:02 PM [facility] Squamous Epithelial, Urine 3 0 - 5 /HPF LAB URINALYSIS - AUTOMATED METHOD 07/31/2025 10:02 PM [facility] Mucus, Urine Present(A) Not Present /HPF LAB URINALYSIS - AUTOMATED METHOD 07/31/2025 10:02 PM [facility] Urine Urine specimen obtained by clean catch procedure / Unknown Non-blood Collection / Unknown 07/31/2025 9:50 PM EDT 07/31/2025 9:51 PM EDT us Jonah Tejada NP LAB URINE ORDERABLES Final Res ult [facility] [address] [place] [address], [place] [phone] * Sullivan urine culture tube (07/31/2025 9:50 PM EDT) Pathologist [facility] Extra Tube Hold for add-ons. 07/31/2025 11:01 PM EDT [facility] Comment:Auto resulted. Urine Urine specimen obtained by clean catch procedure / Unknown Non-blood Collection / Unknown 07/31/2025 9:50 PM EDT 07/31/2025 9:51 PM EDT us Jonah Tejada NP LAB URINE ORDERABLES Final Res ult [facility] [address] [place] [address], [place] [phone] * Chlamydia trachomatis and Neisseria gonorrhoeae molecular study (07/31/2025 9:50 PM EDT) Pathologist [facility] N. gonorrhoeae, RNA Probe Negative Negative LAB MOLECULAR DIAGNOSTICS METHOD 08/01/2025 5:13 AM EDT [facility] Chlamydia, RNA Probe Negative Negative LAB MOLECULAR DIAGNOSTICS METHOD 08/01/2025 5:13 AM EDT [facility] Urine Urethral structure / Unknown Non-blood Collection / Unknown 07/31/2025 9:50 PM EDT 07/31/2025 9:51 PM EDT us Jonah Tejada NP LAB MICROBIOLOGY - GENERAL ORD ERABLES Final Result [facility] [address] [place] [address], [place] [phone] from Last 3 Months Insurance MEDICAID - [place] Care Teams Network Support Specialist Relationship Specialty Start Date End Date Physician, No Pcp PCP - General 08/21/24
--- OUTSIDE RECORDS SUMMARY | 2025-08-09 18:12 | XMS_ITS ---
Author Name [facility] Organization Unknown Results Test Name/Text Value Interpretation Date Range Source C trach rRNA Spec Ql Probe Negative 08/01/2025 - [facility] N gonorrhoea rRNA Spec Ql Probe Negative 08/01/2025 - [facility] Squamous #/area UrnS HPF 3.0 /HPF 08/01/2025 0 - 5 [facility] Mucous Threads #/area UrnS HPF Present Abnormal 08/01/2025 - [facility] Glucose Ur Ql Negative 08/01/2025 - [facility] Color Ur Yellow 08/01/2025 - [facility] N Prot Ur Strip-mCnc Negative 08/01/2025 - [facility] Sp Gr Ur 1.029 08/01/2025 1.005 - 1.03 [facility] Ketones Ur-mCnc Negative 08/01/2025 - [facility] pH Ur 5.0 pH Abnormal 08/01/2025 5 - 8 [facility] N Hgb Ur Ql Small Abnormal 08/01/2025 - [facility] WBC #/area UrnS HPF 1.0 /HPF 08/01/2025 0 - 5 [facility] Clarity Ur Clear 08/01/2025 - [facility] Nitrite Ur Ql Negative 08/01/2025 - [facility] Leukocyte esterase Ur Ql Strip Negative 08/01/2025 - [facility] RBC #/area UrnS HPF 1.0 /HPF 08/01/2025 0 - 3 [facility] History of Medication Use Medication Directions Dispensed Refills Start Date End Date Stat us cefTRIAXone (ROCEPHIN) injection 500 mg 500 mg, intramuscular, Once, On Tue07/31/25 at 2204, For 1 dose, Indication: Sexually Transmitted Infection 08/01/2025 08/01/2025 completed doxycycline (MONODOX) capsule 100 mg 100 mg, oral, Once, On Tue07/31/25 at 2204, For 1 dose, Take with at least 8 ounces (large glass) of water, do not lie down for 30 minutes after. Administer 2 hours before or after multivitamins, antacids, or other products containing polyvalent cations (i.e., calcium, iron, magnesium, selenium, zi 08/01/2025 08/01/2025 completed doxycycline (VIBRAMYCIN) 100 mg capsule Take 1 capsule (100 mg total) by mouth 2 (two) times a day for 10 days. Take with at least 8 ounces (large glass) of water, do not lie down for 30 minutes after. Administer 2 hours before or after multivitamins, antacids, or other products containing polyvalent cations (i.e., calcium, iron, magnesiu 07/31/2025 active clotrimazole (LOTRIMIN) 1 % cream Apply to affected area 2 times daily 04/05/2025 active methocarbamoL (ROBAXIN) 750 mg tablet Take 1 tablet (750 mg total) by mouth 4 (four) times a day for 10 days. 03/13/2025 active Problems Problem Status Onset Date Problem Type Date of Resolution Source Dysuria active EncounterDiagnosisAct [facility] Primary syphilis active 2024-08-21 ProblemAct C [facility] Concern about STD in male without diagnosis active EncounterDiagnosisAct [facility] Encounters Encounter Type Encounter Reason Primary Diagnosis Location Date Emergency Difficulty Urinating Dysuria [facility] 07/31/2025 Care Team Organization Name Specialty Phone Email Start Date End Da te [facility] PHYSICIAN Primary Care 08/01/2025 [facility] NO PHYSICIAN Primary Care 08/01/2025
[2025-08-10 12:04] LABS: CT PCR Urine NOT DETECTED (Not Detect.); NG PCR Urine NOT DETECTED (Not Detect.)
[2025-08-12 20:33] LABS: C.Trachomatis RNA TMA, Rectal NOT DETECTED (NOT DETECTED); N.Gonorrhoeae RNA TMA, Rectal NOT DETECTED (NOT DETECTED)
[2025-08-12 22:09] LABS: C. Trachomatis RNA TMA, Throat NOT DETECTED (NOT DETECTED); N. gonorrhoeae RNA TMA, Throat NOT DETECTED (NOT DETECTED)
== END 2025-08-09 18:10 | disposition home or self-care (01) ==
LOC: HO.HHCLNP 18:09
DX: Z21 Asymptomatic human immunodeficiency virus [HIV] infection status (principal); Z20.2 Contact with and (suspected) exposure to infections with a predominantly sexual mode of transmission
CPT/HCPCS: 87491; 87591

== ENCOUNTER 2025-08-26 08:14 | Outpatient (REF) | payer MEDICAID, SELFPAY ==
[2025-08-27 08:30] LABS: ~HepC Num1 0.11 S/CO (0.00-0.79); ~Hepatitis C Antibody Nonreactive (Nonreactive)
[2025-08-27 13:43] LABS: Rapid Plasma Reagin Ab Titer 1:2
[2025-08-29 04:33] LABS: HIV RNA PCR Qn Copies NOT DETECTED copies/mL (NOT DETECTED); HIV RNA PCR Qn Log Copies NOT DETECTED (NOT DETECTED)
[2025-08-31 14:18] LABS: Absolute CD3 Count 2595 cells/uL (840-3060); Absolute CD8 Count 1100 cells/uL (180-1170); Percent CD3 Cells 74 % (57-85); Percent CD8 Cells 31 % (12-42)
== END 2025-08-26 08:15 | disposition home or self-care (01) ==
LOC: HO.HHCL 08:14
DX: Z11.3 Encounter for screening for infections with a predominantly sexual mode of transmission (principal); Z11.59 Encounter for screening for other viral diseases; Z21 Asymptomatic human immunodeficiency virus [HIV] infection status
CPT/HCPCS: 36415; 86359; 86360; 86592; 86593; 86803; 87536

== ENCOUNTER 2025-09-23 03:37 | Emergency (ER) | payer MEDICAID, SELFPAY ==
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
[2025-09-23 03:47] VITALS: BP 100/60; BP 112/53; PULSE 107; RESP 18; TEMP 37.6; O2SAT 95; BMI 22.3
--- OUTSIDE RECORDS SUMMARY | 2025-09-23 05:13 | XMS_ITS | Clinical Summary ---
Author Organization [facility] Address [address] [place] [address] Phone Care Team Providers Care Manufacturing Advisor Name Role Phone Kristen High [facility] Primary Care Provider Allergies No known active allergies Medications methocarbamoL (ROBAXIN) 750 mg tablet Take 1 tablet (750 mg total) by mouth 4 (four) times a day for 10 days. 40 each 03/13/20 25 Active clotrimazole (LOTRIMIN) 1 % cream Apply to affected area 2 times daily 45 g 04/05/20 25 026 Active doxycycline (VIBRAMYCIN) 100 mg capsule Take 1 capsule (100 mg total) by mouth 2 (two) times a day for 10 days. Take with at least 8 ounces (large glass) of water, do not lie down for 30 minutes after. Administer 2 hours before or after multivitamins, antacids, or other products containing polyvalent cations (i.e., calcium, iron, magnesium, selenium, zinc). 20 capsule 09/18/20 25 025 Active mupirocin (BACTROBAN) 2 % ointment Apply to each nare twice daily for 5-days. 22 g 09/18/20 25 025 Active doxycycline (VIBRAMYCIN) 100 mg capsule Take 1 capsule (100 mg total) by mouth 2 (two) times a day for 10 days. Take with at least 8 ounces (large glass) of water, do not lie down for 30 minutes after. Administer 2 hours before or after multivitamins, antacids, or other products containing polyvalent cations (i.e., calcium, iron, magnesium, selenium, zinc). 20 capsule 09/18/20 25 025 Discontinued mupirocin (BACTROBAN) 2 % ointment Apply to each nare twice daily for 5-days. 22 g 09/18/20 025 Discontinued Active Problems Problem Noted Date Diagnosed Date Primary syphilis 08/21/2024 Encounters Date Type Department Care Team Description 09/18/2025 5:57 PM EST - 09/18/2025 6:53 PM EST Emergency [facility] Emergency [address] [place] [address] Americo Arauz MD Infected wound (Primary Dx) Discharge Disposition: Home or Self Care 09/03/2025 7:11 AM EST - 09/03/2025 12:20 PM [facility] Emergency [address] [place] [address] Syphilis (Primary Dx) Discharge Disposition: Home or Self Care 07/31/2025 9:37 PM EDT - 07/31/2025 10:12 PM EDT Emergency [facility] Emergency [address] [place] [id number] Dysuria (Primary Dx); Concern about STD in male without diagnosis Discharge Disposition: Home or Self Care from Last 3 Months Surgical History Surgery Date Site/Laterality Comments APPENDECTOMY N/A PROCEDURE: MO APPENDECTOMY Medical History Medical History Date Comments Anxiety disorder DX:Anxiety diso rder Depression DX:Depression PTSD (post-traumatic stress disorder) DX:PTSD (post-traumatic stress disorder) Human immunodeficiency virus (HIV) disease ([facility] V24, [facility] V28) DX:Human immunodefi ciency virus (HIV) disease (HCC) HIV (human immunodeficiency virus infection) ([facility] V24, [facility] V28) Social History Tobacco Use Types [...] for your loved ones. For example, child care assistant or elderly care for an older adult? [...] or Mayer 09/15/2024 6: 50 PM EST Last Filed Vital Signs Vital Sign Reading [...] Mass Index 23.17 09/18/2025 3:34 PM EST Plan of Treatment Health Maintenance Due Date [...] Procedure Name Priority Date/Time Associated Diagnosis Comments RAPID PLASMA REAGIN TITER STAT 09/03/2025 7:18 AM EST RAPID PLASMA REAGIN WITH REFLEX TO TITER STAT 09/03/2025 7:18 AM EST TREPONEMA PALLIDUM ANTIBODY WITH REFLEX TO RPR AND PARTICLE AGGLUTINATION STAT 09/03/2025 7:18 AM EST [facility] URINE CULTURE TUBE Routine 09/03/2025 7:17 AM EST EXTRA TUBES Routine 09/03/2025 7:17 AM EST URINALYSIS WITH REFLEX MICROSCOPIC STAT 09/03/2025 7:17 AM EST URINALYSIS WITH REFLEX MICROSCOPIC STAT 09/03/2025 7:17 AM EST CHLAMYDIA TRACHOMATIS AND NEISSERIA GONORRHOEAE PCR STAT 09/03/2025 7:17 AM EST [facility] URINE CULTURE TUBE STAT 07/31/2025 9:50 PM EDT URINALYSIS WITH REFLEX MICROSCOPIC AND CULTURE STAT 07/31/2025 9:50 PM EDT URINALYSIS WITH REFLEX MICROSCOPIC AND CULTURE STAT 07/31/2025 9:50 PM EDT CHLAMYDIA TRACHOMATIS AND NEISSERIA GONORRHOEAE PCR STAT 07/31/2025 9:50 PM EDT from Last 3 Months Results * (ABNORMAL) Treponema pallidum antibody with reflex to RPR and particle agglutination (09/03/2025 7:18 AM EST) Pathologist [facility] T. Pallidum Antibodies Positive( A) Negative 09/03/2025 9:26 AM EST [facility] Blood Venous blood specimen / Unknown Venipuncture / Unknown 09/03/2025 7:18 AM EST 09/03/2025 8:02 AM EST Joceline MARIN LAB BLOOD ORDERABLES Final R esult Performing Organization Address City/[facility]/ZIP Co de Phone Number [facility] [address] [place] [address], [place] [phone] * (ABNORMAL) Rapid plasma reagin titer (09/03/2025 7:18 AM EST) [facility] Rapid Plasma Reagin Titer 1:16(A) Nonreactive 09/03/2025 11:36 AM EST [facility] Blood Venous blood specimen / Unknown Venipuncture / Unknown 09/03/2025 7:18 AM EST 09/03/2025 9:26 AM EST Joceline MARIN LAB BLOOD ORDERABLES Final R esult Performing Organization Address City/[facility] Co de Phone Number [facility] [address] [place] [address], [place] [phone] * (ABNORMAL) Rapid plasma reagin with reflex to titer (09/03/2025 7:18 AM EST) [facility] RPR Reactive(A ) Nonreactive 09/03/2025 11:35 AM EST [facility] Blood Venous blood specimen / Unknown Venipuncture / Unknown 09/03/2025 7:18 AM EST 09/03/2025 9:26 AM EST Joceline MARIN LAB BLOOD ORDERABLES Final R esult [facility] [address] [place] [address], [place] [phone] * (ABNORMAL) Urinalysis with reflex microscopic (09/03/2025 7:17 AM EST) Specific [place] Urine 1.030 1.003 - 1.030 LAB URINALYSIS - AUTOMATED METHOD 09/03/2025 8:24 AM [facility] pH, Urine 5.5 5.0 - 8.0 pH LAB URINALYSIS - AUTOMATED METHOD 09/03/2025 8:24 AM [facility] Leukocytes, Urine Negative Negative LAB URINALYSIS - AUTOMATED METHOD 09/03/2025 8:24 AM [facility] Nitrite, Urine Negative Negative LAB URINALYSIS - AUTOMATED METHOD 09/03/2025 8:24 AM [facility] Protein, Urine Trace <=Trace mg/dL LAB URINALYSIS - AUTOMATED METHOD 09/03/2025 8:24 AM [facility] Glucose, Urine Negative Negative mg/dL LAB URINALYSIS - AUTOMATED METHOD 09/03/2025 8:24 AM [facility] Ketones, Urine 15(A) Negative mg/dL LAB URINALYSIS - AUTOMATED METHOD 09/03/2025 8:24 AM [facility] Urobilinogen, Urine 0.2 0.2 - 1.0 mg/dL LAB URINALYSIS - AUTOMATED METHOD 09/03/2025 8:24 AM [facility] Bilirubin, Urine Negative Negative LAB URINALYSIS - AUTOMATED METHOD 09/03/2025 8:24 AM [facility] Blood, Urine Negative Negative LAB URINALYSIS - AUTOMATED METHOD 09/03/2025 8:24 AM [facility] Urine Urine specimen obtained by clean catch procedure / Unknown Non-blood Collection / Unknown 09/03/2025 7:17 AM EST 09/03/2025 8:15 AM EST us Joceline MARIN LAB URINE ORDERABLES Final R esult Performing Organization Address City/[facility]/ZIP Co de Phone Number [facility] [address] [place] [address], [place] [phone] * [place] urine culture tube (09/03/2025 7:17 AM EST) Only the most recent of2 resultswithin the time period is included. Pathologist [facility] Extra Tube Hold for add-ons. 09/03/2025 10:01 AM EST [facility] Comment:Auto resulted. Urine Urine specimen obtained by clean catch procedure / Unknown 09/03/2025 7:17 AM EST 09/03/2025 8:15 AM EST Joceline MARIN LAB URINE ORDERABLES Final R esult Performing Organization Address [facility] Co de Phone Number [facility] [address] [place] [address], [place] [phone] * Chlamydia trachomatis and Neisseria gonorrhoeae molecular study (09/03/2025 7:17 AM EST) Only the most recent of2 resultswithin the time period is included. [facility] Neisseria gonorrhoeae PCR Negative Negative LAB MOLECULAR DIAGNOSTICS METHOD 09/03/2025 11:14 AM EST [facility] Chlamydia trachomatis PCR Negative Negative LAB MOLECULAR DIAGNOSTICS METHOD 09/03/2025 11:14 AM EST [facility] Urine Urine specimen from urethra / Unknown Non-blood Collection / Unknown 09/03/2025 7:17 AM EST 09/03/2025 8:02 AM EST us Joceline MARIN LAB MICROBIOLOGY - GENERAL O RDERABLES Final Result Performing Organization Address City/[facility]/ZIP Co de Phone Number [facility] [address] [place] [address], [place] [phone] * (ABNORMAL) Urinalysis with reflex microscopic and culture (07/31/2025 9:50 PM EDT) Color, Urine Yellow Yellow, Colorless LAB URINALYSIS - AUTOMATED METHOD 07/31/2025 10:02 PM [facility] Clarity, Urine Clear Clear LAB URINALYSIS - AUTOMATED METHOD 07/31/2025 10:02 PM [facility] Specific [place] Urine 1.029 1.005 - 1.030 LAB URINALYSIS - AUTOMATED METHOD 07/31/2025 10:02 PM [facility] pH, Urine 5.0(A) 5.0 - 8.0 pH LAB URINALYSIS - AUTOMATED METHOD 07/31/2025 10:02 PM [facility] Leukocytes, Urine Negative Negative WBCs/mcL LAB URINALYSIS - AUTOMATED METHOD 07/31/2025 10:02 PM [facility] Nitrite, Urine Negative Negative LAB URINALYSIS - AUTOMATED METHOD 07/31/2025 10:02 PM [facility] Protein, Urine Negative Negative mg/dL LAB URINALYSIS - AUTOMATED METHOD 07/31/2025 10:02 PM [facility] Glucose, Urine Negative Negative mg/dL LAB URINALYSIS - AUTOMATED METHOD 07/31/2025 10:02 PM [facility] Ketones, Urine Negative Negative mg/dL LAB URINALYSIS - AUTOMATED METHOD 07/31/2025 10:02 PM [facility] Blood, Urine Small(A) Negative mg/dL LAB URINALYSIS - AUTOMATED METHOD 07/31/2025 10:02 PM [facility] RBC, Urine 1 0 - 3 /HPF LAB URINALYSIS - AUTOMATED METHOD 07/31/2025 10:02 PM [facility] WBC, Urine 1 0 - 5 /HPF LAB URINALYSIS - AUTOMATED METHOD 07/31/2025 10:[address] [facility] Squamous Epithelial, Urine 3 0 - 5 /HPF LAB URINALYSIS - AUTOMATED METHOD 07/31/2025 10:[address] [facility] Mucus, Urine Present(A) Not Present /HPF LAB URINALYSIS - AUTOMATED METHOD 07/31/2025 10:[address] [facility] Urine Urine specimen obtained by clean catch procedure / Unknown Non-blood Collection / Unknown 07/31/2025 9:50 PM EDT 07/31/2025 9:51 PM EDT us Jonah Tejada LOBBY ATTENDANT LAB URINE ORDERABLES Final Res ult [facility] [address] [place] [address], [place] [phone] from Last 3 Months Insurance MEDICAID - [place] Care Teams Manufacturing Advisor Relationship Specialty Start Date End Date Kristen High FNP [address] [place] [address] [phone] PCP - General Registered Nurse 09/18/25
--- NOTE | 2025-09-23 06:11 | ED_ITS ---
[facility] - General Adult General Chief complaint: Extremity Injury, Lower Stated complaint: unable to sleep, weakness Time Seen by Provider: 09/23/25 06:11 Source: patient Mode of arrival: ambulatory Limitations: no limitations History of Present Illness ED Provider: Dr. Beverly [facility] narrative: 35-year-old male history of HIV cabenuva injection taking 2 days ago. In the left gluteal aspect. It has been worsening pain when he ambulates. Difficulty with ambulation. Has not taken any pain medicine prior to arrival here. Related Data Previous Rx's ?Medication ?Instructions ?Recorded doxycycline hyclate 100 mg capsule 100 mg PO BID 7 day s #14 caps 02/28/21 nitrofurantoin macrocrystal 100 mg 100 mg PO BID 7 day s #14 caps 02/28/21 capsule cyclobenzaprine 5 mg tablet 5 mg PO TID PRN muscle spa sm 6 09/23/25 days #20 tabs Allergies Allergy/AdvReac Type Severity Reaction Status Date / Time No Known Allergies (No Known Allergy Verified 09/23/25 03:50 Allergies*) Review of Systems Review of Systems: Pertinent review of systems as mentioned in HPI. All other system otherwise negative. [facility] Past Medical History [facility] Narrative: Medical history as mentioned in [facility] Social History Social History Advance Directives: No Advance Directives Information Provided: No Do you have a plan to hurt others: No Plan Physical Exam ED Exam Exam: General: Pleasant, no distress, interacting appropriately Head: Normacephalic, atraumatic Extremities: Left gluteal pain, there was some swelling around the injection site. No sign of erythema or infection. No fluctuant mass palpated Neurological: Awake and alert, no facial droop noted Skin: Warm and dry Psychiatric: Appropriate mood and thoughts Vital Signs: Vital Signs - 24 hr 09/23/25 03:47 09/23/25 06:27 Temperature 99.6 F 98.4 F Pulse Rate 107 H 92 Respiratory Rate 18 16 Blood Pressure 112/53 L 100/52 L Pulse Oximetry 95 99 Oxygen Delivery Method Room Air Room Air BMI result Body Mass Index 22.3 Medications Administered Discontinued Medications Generic Name Dose Route Start Last Admin Trade Name Freq PRN Reason Stop Dose Admin Acetaminophen 975 mg 09/23/25 06:19 09/23/25 06:29 Acetaminophen 325 Mg Tablet PO 09/23/25 06:20 975 mg ONCE ONE Administration Naproxen 500 mg 09/23/25 06:19 09/23/25 06:28 Naproxen 500 Mg Tablet PO 09/23/25 06:20 500 mg ONCE ONE Administration Medical Decision Making Medical Decision Making [facility] Narrative: This is a 35-year-old male history of HIV on cabenuva shot presented to the ER for evaluation of left gluteal pain after injection. No signs of infection over injection site. Patient is able to ambulate. We will plan to give patient some naproxen and Tylenol. We will plan to discharge patient with a Flexeril to take instruct him to take [id number] medicine as needed for his pain. I think this is injection site. This will improve over time. No signs of infection. Patient will be discharged home. Differential Diagnosis Differential Diagnoses: The differential diagnosis associated with the presentation includes Hematoma, injection site pain Discharge Plan Discharge Clinical Impression: Gluteal pain Patient Disposition: Home, Self-Care Instructions: Musculoskeletal Pain (ED) Prescriptions: New cyclobenzaprine 5 mg tablet 5 mg PO TID PRN (Reason: muscle spasm) 6 Days Qty: 20 0RF No Action nitrofurantoin macrocrystal 100 mg capsule 100 mg PO BID 7 Days Qty: 14 0RF Rx Instructions: must administer with a meal/food doxycycline hyclate 100 mg capsule 100 mg PO BID 7 Days Qty: 14 0RF Interventions: ED Discharge Assessment Last Done: 09/23/25 06:32 Print Language: Togolese
[2025-09-23 06:27] VITALS: BP 100/52; PULSE 92; RESP 16; TEMP 36.9; O2SAT 99
[2025-09-23 06:32] VITALS: BP 100/52; PULSE 92; RESP 16; TEMP 36.9; O2SAT 99
== END 2025-09-23 06:33 | disposition home or self-care (01) ==
PROVIDERS: Emergency Provider Student in an Organized Health Care Education/Training Program
DX: M76.02 Gluteal tendinitis, left hip (principal); R53.1 Weakness
CPT/HCPCS: 99283; 99284

== ENCOUNTER 2025-09-30 08:23 | Outpatient (REF) | payer MEDICAID, SELFPAY ==
--- OUTSIDE RECORDS SUMMARY | 2025-09-30 08:32 | XMS_ITS | Clinical Summary ---
Author Organization [facility] Address [address] [place] [address] Phone Care Team Providers Care [employer] Name Role Phone Kristen High [facility] Primary Care Provider [phone] Allergies No known active allergies Medications methocarbamoL [...] for 5-days. 22 g 09/18/20 25 025 Discontinued doxycycline (VIBRAMYCIN) 100 mg capsule Take 1 [...] selenium, zinc). 20 capsule 09/18/20 25 025 mupirocin (BACTROBAN) 2 % ointment Apply to each nare twice daily for 5-days. 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 Emergency [address] [place] [phone] Dysuria (Primary Dx); Concern about STD in male without diagnosis Discharge Disposition: Home or Self Care from Last 3 Months Surgical History Surgery Date Site/Laterality Comments APPENDECTOMY N/A PROCEDURE: MS APPENDECTOMY Medical History Medical History Date Comments Anxiety disorder DX:Anxiety diso rder Depression DX:Depression PTSD (post-traumatic stress disorder) DX:PTSD (post-traumatic stress disorder) Human immunodeficiency virus (HIV) disease ([facility] V24, [facility] V28) DX:Human immunodefi ciency virus (HIV) disease (HCC) HIV (human immunodeficiency virus infection) ([facility] V24, [facility] V28) Social History Tobacco Use Types Packs/Day [...] for your loved ones. For example, child protective services social worker or elderly care for an older [...] particle agglutination (09/03/2025 7:18 AM EST) Pathologist [facility] T. Pallidum Antibodies Positive( A) Negative 09/03/2025 9:26 AM EST [facility] Blood Venous blood specimen / Unknown Venipuncture / Unknown 09/03/2025 7:18 AM EST 09/03/2025 8:02 AM EST Joceline MARIN LAB BLOOD ORDERABLES Final R esult Performing Organization Address City/[facility] Co de Phone Number [facility] [address] [place] [address], [place] [phone] * (ABNORMAL) Rapid plasma reagin titer (09/03/2025 7:18 AM EST) [facility] Rapid Plasma Reagin Titer 1:16(A) Nonreactive 09/03/2025 11:36 AM EST [facility] Blood Venous blood specimen / Unknown Venipuncture / Unknown 09/03/2025 7:18 AM EST 09/03/2025 9:26 AM EST Joceline MARIN LAB BLOOD ORDERABLES Final R esult Performing Organization Address [facility] Co de Phone Number [facility] [address] [place] [address], [place] [phone] * (ABNORMAL) Rapid plasma reagin with reflex to titer (09/03/2025 7:18 AM EST) [facility] RPR Reactive(A ) Nonreactive 09/03/2025 11:35 AM EST [facility] Blood Venous blood specimen / Unknown Venipuncture / Unknown 09/03/2025 7:18 AM EST 09/03/2025 9:26 AM EST Joceline MARIN LAB BLOOD ORDERABLES Final R esult Performing Organization Address City/[facility]/ZIP Co de Phone Number [facility] [address] [place] [address], [place] [phone] * (ABNORMAL) Urinalysis with reflex microscopic (09/03/2025 7:17 AM EST) Specific Mcgill Urine 1.030 1.003 - 1.030 LAB URINALYSIS - AUTOMATED METHOD 09/03/2025 8:24 AM [facility] pH, Urine 5.5 5.0 - 8.0 pH LAB URINALYSIS - AUTOMATED METHOD 09/03/2025 8:24 AM [facility] Leukocytes, Urine Negative Negative LAB URINALYSIS - AUTOMATED METHOD 09/03/2025 8:24 AM [facility] Nitrite, Urine Negative Negative LAB URINALYSIS - AUTOMATED METHOD 09/03/2025 8:24 AM [facility] Protein, Urine Trace <=Trace mg/dL LAB URINALYSIS - AUTOMATED METHOD 09/03/2025 8:24 AM [facility] Glucose, Urine Negative Negative mg/dL LAB URINALYSIS - AUTOMATED METHOD 09/03/2025 8:24 AM [facility] Ketones, Urine 15(A) Negative mg/dL LAB URINALYSIS - AUTOMATED METHOD 09/03/2025 8:24 AM [facility] Urobilinogen, Urine 0.2 0.2 - 1.0 mg/dL LAB URINALYSIS - AUTOMATED METHOD 09/03/2025 8:24 AM [facility] Bilirubin, Urine Negative Negative LAB URINALYSIS - AUTOMATED METHOD 09/03/2025 8:24 AM [facility] Blood, Urine Negative Negative LAB URINALYSIS - AUTOMATED METHOD 09/03/2025 8:24 AM [facility] Urine Urine specimen obtained by clean catch procedure / Unknown Non-blood Collection / Unknown 09/03/2025 7:17 AM EST 09/03/2025 8:15 AM EST us Joceline MARIN LAB URINE ORDERABLES Final R esult Performing Organization Address City/[facility]/ZIP Co de Phone Number [facility] [address] [place] [address], [place] [phone] * Sullivan urine culture tube (09/03/2025 7:17 AM EST) Only the most recent of2 resultswithin the time period is included. Pathologist [facility] Extra Tube Hold for add-ons. 09/03/2025 10:01 AM EST [facility] Comment:Auto resulted. Urine Urine specimen obtained by clean catch procedure / Unknown 09/03/2025 7:17 AM EST 09/03/2025 8:15 AM EST Joceline MARIN LAB URINE ORDERABLES Final R esult Performing Organization Address [facility] Co de Phone Number [facility] [address] [place] [address], [place] [phone] * Chlamydia trachomatis and Neisseria gonorrhoeae molecular study (09/03/2025 7:17 AM EST) Only the most recent of2 resultswithin the time period is included. [facility] Neisseria gonorrhoeae PCR Negative Negative LAB MOLECULAR DIAGNOSTICS METHOD 09/03/2025 11:14 AM EST [facility] Chlamydia trachomatis PCR Negative Negative LAB MOLECULAR DIAGNOSTICS METHOD 09/03/2025 11:14 AM EST [facility] Urine Urine specimen from urethra / Unknown Non-blood Collection / Unknown 09/03/2025 7:17 AM EST 09/03/2025 8:02 AM EST us Joceline MARIN LAB MICROBIOLOGY - GENERAL O RDERABLES Final Result Performing Organization Address City/[facility]/ZIP Co de Phone Number [facility] [address] [place] [address], [place] [phone] * (ABNORMAL) Urinalysis with reflex microscopic and culture (07/31/2025 9:50 PM EDT) Color, Urine Yellow Yellow, Colorless LAB URINALYSIS - AUTOMATED METHOD 07/31/2025 10:02 PM [facility] Clarity, Urine Clear Clear LAB URINALYSIS - AUTOMATED METHOD 07/31/2025 10:02 PM [facility] Specific Mcgill Urine 1.029 1.005 - 1.030 LAB URINALYSIS - AUTOMATED METHOD 07/31/2025 10:02 PM [facility] pH, Urine 5.0(A) 5.0 - 8.0 pH LAB URINALYSIS - AUTOMATED METHOD 07/31/2025 10:02 PM [facility] Leukocytes, Urine Negative Negative WBCs/mcL LAB URINALYSIS - AUTOMATED METHOD 07/31/2025 10:02 PM [facility] Nitrite, Urine Negative Negative LAB URINALYSIS - AUTOMATED METHOD 07/31/2025 10:02 PM [facility] Protein, Urine Negative Negative mg/dL LAB URINALYSIS - AUTOMATED METHOD 07/31/2025 10:02 PM [facility] Glucose, Urine Negative Negative mg/dL LAB URINALYSIS - AUTOMATED METHOD 07/31/2025 10:02 PM [facility] Ketones, Urine Negative Negative mg/dL LAB URINALYSIS - AUTOMATED METHOD 07/31/2025 10:02 PM [facility] Blood, Urine Small(A) Negative mg/dL LAB URINALYSIS - AUTOMATED METHOD 07/31/2025 10:02 PM [facility] RBC, Urine 1 0 - 3 /HPF LAB URINALYSIS - AUTOMATED METHOD 07/31/2025 10:02 PM [facility] WBC, Urine 1 0 - 5 /HPF LAB URINALYSIS - AUTOMATED METHOD 07/31/2025 10:02 PM EDT [facility] Squamous Epithelial, Urine 3 0 - 5 /HPF LAB URINALYSIS - AUTOMATED METHOD 07/31/2025 10:02 PM EDT [facility] Mucus, Urine Present(A) Not Present /HPF LAB URINALYSIS - AUTOMATED METHOD 07/31/2025 10:02 PM EDT [facility] Urine Urine specimen obtained by clean catch procedure / Unknown Non-blood Collection / Unknown 07/31/2025 9:50 PM EDT 07/31/2025 9:51 PM EDT us Jonah Tejada [facility] [employer] URINE ORDERABLES Final Res ult [facility] [address] [place] [address], [place] [phone] from Last 3 Months Insurance MEDICAID - [place] Care Teams [employer] Relationship Specialty Start Date End Date Kristen High FNP [address] [place] [address] [id number] PCP - General Registered Nurse 09/18/25
[2025-09-30 11:08] LABS: MANUAL DIFF FLAG NO
[2025-09-30 11:23] LABS: Hematocrit 37.7 % (42.0-52.0); Hemoglobin 12.3 g/dl (14.0-18.0); Imm Gran Abs Auto 0.02 X10*3/uL (0.00-0.03); Imm Gran Pct Auto 0.3 % (0.0-0.4); Lymphocytes Absolute Auto 3.3 X10*3/uL (1.2-4.9); Mean Corpuscular HGB Conc 32.6 g/dl (31.0-36.0); Mean Corpuscular Hemoglobin 28.9 pg (27.0-33.0); Mean Corpuscular Volume 88.5 fL (80.0-98.0); NRBC Abs Auto 0.000 X10*3/uL (0.0-0.012); NRBC Pct Auto 0.0 /100WBC (0.0-0.2); Platelet Count 343 X10*3/uL (160-400); Red Blood Count 4.26 X10*6/uL (4.60-5.80); White Blood Count 6.6 X10*3/uL (4.8-10.8)
[2025-09-30 11:31] LABS: Albumin Level 4.1 g/dL (3.5-5.0); Alkaline Phosphatase 104 U/L (39-117); Anion Gap 10 (12-20); Aspartate Amino Transferase 29 U/L (5-37); Blood Urea Nitrogen 22 mg/dL (9-16); Calcium 8.8 mg/dL (8.4-10.2); Carbon Dioxide 26 mmol/L (22-29); Chloride 109 mmol/L (96-108); Estimated Glomerular Filt Rate > 60; Potassium 3.8 mmol/L (3.3-5.1); Sodium 141 mmol/L (135-145); Total Protein 7.0 g/dL (6.5-8.0)
[2025-09-30 11:51] LABS: ~HepC Num1 0.11 S/CO (0.00-0.79); ~Hepatitis C Antibody Nonreactive (Nonreactive)
[2025-09-30 12:12] LABS: Alanine Aminotransferase 16 U/L (0-40)
[2025-10-02 12:58] LABS: Rapid Plasma Reagin Ab Titer 1:2
== END 2025-09-30 08:24 | disposition home or self-care (01) ==
LOC: HO.HHCL 08:23
PROVIDERS: PCP Internal Medicine; Visit Provider Internal Medicine
DX: Z11.1 Encounter for screening for respiratory tuberculosis (principal); Z11.59 Encounter for screening for other viral diseases; Z11.3 Encounter for screening for infections with a predominantly sexual mode of transmission; B20 Human immunodeficiency virus [HIV] disease
CPT/HCPCS: 36415; 80053; 82550; 85025; 86359; 86360; 86481; 86592; 86593; 86803; 87536